=== PATIENT | female | born 1955 | race Caucasian/White ===

== ENCOUNTER 2021-07-23 08:55 | Outpatient (RCR) | payer MEDICARE, SELFPAY ==
[2021-07-23] MEDS: FAMOTIDINE 20 MG TABLET PO (15:47)
[2021-07-23] MEDS: ACETAMINOPHEN 325 MG TABLET 650 MG PO (15:47)
[2021-07-23] MEDS: diphenhydrAMINE HCl CAP 25 MG CAPSULE PO (15:47)
[2021-07-23 15:49] VITALS: BP 136/66; PULSE 77; RESP 20; TEMP 36.6; O2SAT 99
[2021-07-23 16:48] VITALS: BP 135/60
== END 2021-07-23 17:00 | disposition home or self-care (01) ==
LOC: AMCINF 08:55
PROVIDERS: Visit Provider Internal Medicine Hematology & Oncology
DX: U07.1 COVID-19 (principal)
CPT/HCPCS: A9270; M0243; Q0244

== ENCOUNTER 2022-07-24 10:30 | Emergency (ER) | payer MEDICARE, SELFPAY ==
--- NOTE | 2022-07-24 10:36 | ED.URI ---
HPI - URI/Sore Throat General Chief Complaint: Upper Respiratory Infection Stated Complaint: Chest Congestion Time Seen by Provider: 07/24/22 10:36 Source: patient and RN notes reviewed History of Present Illness HPI Narrative: patient is 66-year-old female who presents to the Urgent Care with complaints of chest congestion, cough and intermittent shortness of breath since yesterday. Patient does have a history of asthma and has not been using her albuterol inhaler. Patient states she has used Mucinex DM and taken Tylenol. Denies any fevers, nausea, vomiting. Denies of chest pain. No other acute complaints. No acute distress noted. Patient aware of the plan of care. Some parts of this dictation were generated by voice recognition software and may contain typographical and/or grammatical inaccuracies. Related Data Home Medications Medication Instructions Recorded Confirmed metoprolol tartrate 25 mg tablet 25 mg PO DAILY 07/23/21 07/24/22 multivitamin 1 tablet PO DAILY 07/23/21 07/24/22 albuterol sulfate 90 mcg/actuation 2 puff inhalation QID PRN 07/24/22 07/24/22 aerosol inhaler Shortness Of Breath aspirin 81 mg chewable tablet 81 mg PO DAILY 07/24/22 07/24/22 zolpidem 5 mg tablet 5 mg PO DAILY 07/24/22 07/24/22 Allergies Allergy/AdvReac Type Severity Reaction Status Date / Time No Known Allergies Allergy Verified 07/23/21 15:46 Review of Systems Review of Systems: CONSTITUTIONAL: Denies fever, chills, or sweats. EYES: Denies visual changes, redness, or discharge. ENT: Denies rhinorrhea, congestion, sore throat, or otalgia. CARDIOVASCULAR: Denies chest pain, palpitations, or edema. RESPIRATORY: Reports of chest congestion,cough with intermittent dyspnea GASTROINTESTINAL: Denies abdominal pain, nausea, vomiting, or diarrhea. GENITOURINARY: Denies dysuria or hematuria. SKIN: Denies rash or itching. MUSCULOSKELETAL: Denies back pain, joint pain, or myalgia. NEUROLOGIC: Denies headache, numbness, or weakness. All other systems reviewed are negative, except as documented in HPI. PMFSH Comments At the time of my signature, I reviewed and agree with the nursing past medical, surgical, social, and family history. There is no relevant family history pertinent to the patient complaint. Exam Narrative: GENERAL: This is a well-nourished, well-developed patient, in no apparent distress. HEAD: normocephalic, atraumatic. EYES: PERRL. Sclera clear/white. Vision is grossly intact. EARS: External ears normal, auditory canals clear and without drainage, TMs normal without perforation. Hearing grossly intact. NOSE: External nose normal with no obvious nasal discharge, nares without redness, no rhinorrhea. THROAT: Mucous membranes moist, posterior pharynx clear. moderate postnasal drainage NECK: Neck supple, non-tender without lymphadenopathy CARDIOVASCULAR: Regular rate and rhythm without murmurs, gallops, or rubs. RESPIRATORY: Clear to auscultation. Breath sounds equal bilaterally. No wheezes, rales, or rhonchi. no dyspnea noted SKIN: warm, intact with no suspicious lesions or rash, good texture and turgor. NEURO: awake, alert, and oriented to person, place and time. There were no obvious focal neurologic abnormalities. EXTREMITIES: No clubbing, cyanosis, or edema. Course Course Level of Care: Express Care Visit Vital Signs Vital signs: Vital Signs Temperature 98.4 F 07/24/22 10:41 Pulse Rate 89 07/24/22 10:41 Respiratory Rate 20 07/24/22 10:41 Blood Pressure 150/20 H 07/24/22 10:41 Pulse Oximetry 98 07/24/22 10:41 Temperature 98.4 F 07/24/22 10:41 Pulse Rate 89 07/24/22 10:41 Respiratory Rate 20 07/24/22 10:41 Blood Pressure 150/20 H 07/24/22 10:41 Pulse Oximetry 98 07/24/22 10:41 reviewed- Patient is informed that they may have pre-hypertension or hypertension based on a blood pressure reading in the department. I recommend the patient call the primary care provider list
[2022-07-24 10:38] VITALS: BP 150/70; PULSE 89; RESP 20; TEMP 36.9; O2SAT 98
== END 2022-07-24 10:58 | disposition home or self-care (01) ==
PROVIDERS: Emergency Provider Nurse Practitioner Family
DX: J06.9 Acute upper respiratory infection, unspecified (principal); J45.909 Unspecified asthma, uncomplicated; Z79.82 Long term (current) use of aspirin
CPT/HCPCS: 99213; G0463

== ENCOUNTER 2024-07-18 12:30 | Emergency (ER) | payer MEDICARE, OTHER, SELFPAY ==
[2024-07-18 12:42] VITALS: BP 126/49; PULSE 88; RESP 16; TEMP 37.4; O2SAT 96
--- NOTE | 2024-07-18 13:25 | ED.URI ---
HPI - URI/Sore Throat General Chief Complaint: Upper Respiratory Infection Stated Complaint: throat/drainage Time Seen by Provider: 07/18/24 13:17 Source: patient and RN notes reviewed Mode of arrival: ambulatory Limitations: no limitations History of Present Illness HPI Narrative: Patient presents today complaining a fever up to 100.5, postnasal drip, rhinorrhea, sore throat, weakness, headache, nausea, body aches and fatigue. Symptoms began 4 days ago. Denies shortness of breath or difficulty swallowing. Currently rates her pain 7/10 and has been taking Mucinex, Tessalon Perles, Motrin, and Tylenol without much relief. Related Data Home Medications ?Medication ?Instructions ?Recorded ?Confirmed ?Last Taken ?Type metoprolol tartrate 25 mg tablet 25 mg PO DAILY 07/23/21 07/24/22 Unknown History multivitamin 1 tablet PO DAILY 07/23/21 07/24/22 Unknown History albuterol sulfate 90 mcg/actuation 2 puff inhalation QID PRN 07/24/22 07/24/22 Unknown History aerosol inhaler Shortness Of Breath aspirin 81 mg chewable tablet 81 mg PO DAILY 07/24/22 07/24/22 Unknown History zolpidem 5 mg tablet 5 mg PO DAILY 07/24/22 07/24/22 Unknown History Allergies Allergy/AdvReac Type Severity Reaction Status Date / Time No Known Allergies Allergy Verified 07/18/24 13:19 Review of Systems Review of Systems: CONSTITUTIONAL: + fever, weakness, fatigue, body aches EYES: Denies visual changes, redness, or discharge. ENT: Denies congestion, or otalgia.+ sore throat, rhinorrhea, postnasal drip CARDIOVASCULAR: Denies chest pain, palpitations, or edema. RESPIRATORY: Denies cough or dyspnea. GASTROINTESTINAL: Denies abdominal pain, vomiting, or diarrhea.+ nausea GENITOURINARY: Denies dysuria or hematuria. SKIN: Denies rash, itching, or wounds. MUSCULOSKELETAL: Denies back pain, joint pain, or myalgia. NEUROLOGIC: Denies numbness, tingling, or weakness.+ headache PSYCH: Denies depression or anxiety. PMFSH Comments At time of signature, I have reviewed and agree with nursing past medical, surgical, social and family history unless otherwise noted. Please see nursing chart for further information. There is no relevant family history pertinent to the presenting complaint Exam Narrative: GENERAL: Mildly ill-appearing, well-nourished, and in no acute distress. HEAD: Normocephalic, atraumatic. EYES: EOMI. No redness or drainage. Conjunctivae normal. ENT: Mucous membranes pink and moist. Nares mildly congested. No rhinorrhea. TMs normal bilaterally. Throat normal. Uvula midline. NECK: Normal AROM. Supple. No lymphadenopathy. CHEST: No respiratory distress. Clear to auscultation. HEART: Regular rate and rhythm. No murmur appreciated. EXTREMITIES: Normal range of motion. No edema. SKIN: Warm, dry, no rash. Capillary refill normal. Normal skin turgor. NEURO: No focal deficits. Alert and oriented x3. Gait steady. PSYCH: Normal affect. No signs of depression or anxiety. Course Course Level of Care: Express Care Visit Vital Signs Vital signs: Vital Signs Temperature 99.4 F 07/18/24 12:42 Pulse Rate 88 07/18/24 12:42 Respiratory Rate 16 07/18/24 12:42 Blood Pressure 126/49 L 07/18/24 12:42 Pulse Oximetry 96 07/18/24 12:42 Oxygen Delivery Room Air 07/18/24 12:42 Temperature 99.4 F 07/18/24 12:42 Pulse Rate 88 07/18/24 12:42 Respiratory Rate 16 07/18/24 12:42 Blood Pressure 126/49 L 07/18/24 12:42 Pulse Oximetry 96 07/18/24 12:42 Oxygen Delivery Room Air 07/18/24 12:42 Reviewed MDM - URI/Sore Throat MDM Narrative Medical decision making narrative: COVID positive. Influenza and strep negative. Patient declines prescription for Paxlovid. Discussed duration of illness and voee-cqd-iygfnmo medication use. Anticipatory guidance given. ED precautions given. Differential Diagnosis Differential diagnosis: Likely upper respiratory infection, viral infection, bronchitis, influenza, pharyngitis and other (COVID-19, strep throat) Lab Data Attestation: I reviewed the patient's lab results. Labs: Lab Results 07/18/24 Range/Units 13:08 POC Influenza A Ag Negative (Negative) POC Influenza B Ag Negative (Negative) POC SARS CoV-2 Ag Positive (Negative) POC Grp A Strep Screen Negative (Negative) Critical Care Time Critical Care Time Critical Care Time: No Discharge Plan Discharge Clinical Impression: COVID-19 Patient Disposition: Home, Self-Care Condition: Stable Instructions: COVID-19 (Coronavirus Disease 2019) (ED) Additional Instructions: Your COVID-19 test is positive today. Your influenza and strep swabs are negative. Please continue kasa-uhu-ghybhuu medications at home for your symptoms. Rest and stay hydrated. Follow-up with your PCP next week if symptoms are not improving. Go to the ER immediately if you develop worsening symptoms such as shortness of breath, chest pain, or development of new fever greater than 100.3. Your blood pressure was elevated above 120/80 today at Urgent Care. This puts you above the threshold for follow up. Please schedule a followup visit with your personal physician as soon as possible, for further evaluation and treatment. Even blood pressure exceeding 120/80 may indicate pre-hypertension. Patient Language: Vietnamese Prescriptions: No Action zolpidem 5 mg tablet 5 mg PO DAILY aspirin [Baby Aspirin] 81 mg Tablet,Chewable 81 mg PO DAILY albuterol sulfate 90 mcg/actuation Hfa Aerosol Inhaler 2 puff INHALATION QID PRN (Reason: Shortness Of Breath) benzonatate 100 mg capsule 100 mg PO TID PRN (Reason: cough) Qty: 20 0RF prednisone 20 mg tablet 20 mg PO DAILY Qty: 5 0RF multivitamin Tablet 1 tablet PO DAILY metoprolol tartrate 25 mg Tablet 25 mg PO DAILY Follow-up/Referrals: PHYSICIAN NOT ON STAFF,NONSTAFF [Primary Care Provider] - Time of Disposition: 13:42
[2024-07-18 13:48] LABS: EDCOVIDSCREEN Positive (Negative); EDINFLUASCREEN Negative (Negative); EDINFLUBSCREEN Negative (Negative); EDSTREPNEGPOS1 Negative (Negative)
== END 2024-07-18 13:50 | disposition home or self-care (01) ==
PROVIDERS: Emergency Provider Nurse Practitioner
DX: U07.1 COVID-19 (principal)
CPT/HCPCS: 87081; 87426; 87804; 87880; 99213; G0463

== ENCOUNTER 2025-05-11 09:21 | Outpatient (CLI) | payer MEDICARE, SELFPAY ==
--- OUTSIDE RECORDS SUMMARY | 2025-05-11 10:19 | XMS_ITS | Clinical Summary ---
Author Organization [facility] [address] [place] [address] [place] [id number] Care Team Providers Care Director Security Risk Management Name Role Phone Leo Talbot MD Primary Care Provider [phone] Allergies Active Allergy Reactions Criticality Noted Date Comments Oxycodone Shortness of breath High 06/16/2019 Medications metoprolol XL (TOPROL-XL) 25 mg 24 hr tablet take 1 tablet by oral route every day 0 0 04/02/20 16 Active calcium carbonate-vitamin D3 (CALCIUM+D) 1,250mg (500mg elemental) - 200 units per tablet 0 0 04/02/20 16 Active Additional Information Patient not taking.Reported on 09/16/2024 acetaminophen (TYLENOL) 325 mg tablet take 1 tablet by oral route every 4 hours as needed 0 0 04/02/20 16 Active latanoprost (XALATAN) 0.005 % ophthalmic solution 12/27/19 17 Active metoprolol XL (TOPROL-XL) 25 mg 24 hr tablet Take 0.5 tablets (12.5 mg total) by mouth Active multivitamin with minerals tablet Take by mouth. Active aspirin 81 mg tablet Take 1 tablet (81 mg total) by mouth Active amLODIPine (NORVASC) 2.5 mg tablet 05/26/20 18 Active latanoprost (XALATAN) 0.005 % ophthalmic solution Administer 1 drop into affected eye(s) nightly Active rosuvastatin (CRESTOR) 5 mg tablet Take 1 tablet (5 mg total) by mouth nightly at bedtime 05/17/20 23 Active diazePAM (VALIUM) 5 mg tablet TAKE 1 TABLET BY MOUTH NEEDED FOR ANXIETY. TAKE 30 MINUTES PRIOR TO MRI APPOINTMENT 05/18/20 23 Active zolpidem (AMBIEN) 5 mg tabletIndications: Sleep-Onset Insomnia Take 1 tablet (5 mg total) by mouth nightly as needed for sleep Active albuterol HFA (PROVENTIL HFA,VENTOLIN HFA,PROAIR HFA) 90 mcg/actuation inhaler Inhale 2 puffs every 6 (six) hours as needed for wheezing Active celecoxib (CeleBREX) 200 mg capsuleIndications :Left knee pain, unspecified chronicity,Primary localized osteoarthritis of knees, bilateral Take 1 capsule (200 mg total) by mouth daily for 21 days 21 capsule 09/05/19 25 Active Active Problems Problem Noted Date Diagnosed Date Asthma 06/16/2019 Closed fracture of distal en d of right fibula with routine healing 02/19/2017 Contusion of right knee 02/19/2017 Fracture follow-up 01/22/2017 Closed fracture of right distal fibula 7 Palpitations 04/27/2013 Ventricular premature beats 04/27/2013 Syncope 02/11/2012 Resolved Problems Problem Noted Date Diagnosed Date Resolved Date Paroxysmal supraventricular tachycardia 04/27/2013 06/25/2018 Immunizations Immunization Administration Dates Next Due Influenza, Trivalent, High D ose, Split, Preservative Free, Intramuscular 07/04/2019 Medical History Medical History Date Comments Asthma Asthma; Comments : [facility] 04/02/2016 - Hx Other Medical Abnormal Heartb eat; Comments: [facility] 04/02/2016 - Family History Medical History Relation Name Comments Heart disease Mother Relation Name Status Comments Mother Social History Tobacco Use Types Packs/Day Years Used Date Smoking Tobacco: Never Smokeless Tobacco: Never Tobacco Cessation:Counseling Given: Not Answered Alcohol Use Standard Drinks/Week Comments Defer 0 (1 standard drink = 0.6 oz pur e alcohol) AUDIT-C Answer Date Recorded Q1: How often do you have a drink containing alcohol? Never 09/05/2024 Q2: How many drinks containi ng alcohol do you have on a typical day when you are drinking? Patient does not drink Q3: How often do you have si x or more drinks on one occasion? Never 09/05/2024 Comments Unknown Sex and Gender Information Value Date Recorded Sex Assigned at Not on file Legal Sex Female 4:15 AM HOSE SEAMER Gender Identity Not on file Sexual Orientation Not on file Obstetrics History Last Filed Vital Signs Vital Sign Reading Time Taken Comments Blood Pressure 146/75 09/16/2024 10:32 AM HOSE SEAMER Pulse 72 09/16/2024 10:32 AM HOSE SEAMER Temperature 36.6 C (97.8 F) 06/12/2023 12:48 PM HOSE SEAMER Respiratory Rate 16 09/05/2024 11:29 AM HOSE SEAMER Oxygen Saturation 96% 06/12/2023 12:48 PM HOSE SEAMER Inhaled Oxygen Concentration - - Weight 63 kg (139 lb) 09/16/2024 10:32 AM HOSE SEAMER Height 157.5 cm (5' 2) 09/16/2024 10:32 AM HOSE SEAMER Body Mass Index 25.42 09/16/2024 10:32 AM HOSE SEAMER Plan of Treatment Health Maintenance Due Date Last Done Comments Colon Cancer Screening-Colonoscopy 1955 Depression Screening 1955 Fall Risk Assessment 1955 Hepatitis C Screening 1955 Osteoporosis Screening-Bone Density Scan 1955 Hepatitis B Screening 10/28/1971 Well Visit 65+ 2018 Covid-19 Vaccine (2024-2 6 season) 2025 04/26/2021, 10/20/2020, 09/23/2020 Influenza Vaccine (#1) 2025 , 03/19/2020, 07/04/2019, Additional history exists Breast Cancer Screening-Mammogram 05/09/2025 05/09/2024, 05/09/2024, 03/06/2023, Additional history exists DTaP/Tdap/Td Vaccine (2 - Td or Tdap) 11/06/2025 11/07/2015 Zoster Vaccine Completed 05/10/2018, 02/25/2018 Pneumococcal vaccine 65+ Completed 020, 12/17/2018, 02/25/2018 Insurance MEDICARE [facility] CHOICE PLUS [employer] MEDICARE SUPPLEMENT MEDICARE [facility] MEDICARE SUPPLEMENT Care Teams Director Security Risk Management Relationship Specialty Start Date End Date Leo Talbot MD [address] [place] [address] [place] [address] PCP - General Internal Medicine 06/25/18
--- OUTSIDE RECORDS SUMMARY | 2025-05-11 10:19 | XMS_ITS | Encounter Summary ---
Author Organization [facility] Address [address] [place] [address] Phone Care Team Providers Care Soft Sugar Cutter Name Role Phone Leo Talbot MD Primary Care Provider [phone] Reason for Referral * Radiology Services (Routine) - Closed Specialty Diagnoses / Procedures Referred By Contac t Referred To Contact Radiology Diagnoses Encounter for screening mammogram for breast cancer Procedures ERIN SCREENING BILATERAL DIGITAL W CAD W Leo Duckworth MD [address] [place] [address] [place] [address] Phone: tel: fax: Referral ID Status Reason Start Date Expiration Date Visits Re quested Visits Authorized [id number] Closed 02/08/2024 1 1 Encounter Details Date Type Department Care Team (Latest Contact Info) Description 02/08/2024 Transcribe Orders [facility] Central Scheduling [address] [place] [address] Leo Talbot MD [address] [place] [address] [place] [id number] Encounter for screening mammogram for breast cancer (Primary Dx) Social History Tobacco Use Types Packs/Day Years Used Date Smoking Tobacco: Never Alcohol Use Standard Drinks/Week Comments No 0 (1 standard drink = 0.6 oz pur e alcohol) Comments No Sex and Gender Information Value Date Recorded Sex Assigned at Not on file Legal Sex Female 12:43 AM CDT Gender Identity Not on file Sexual Orientation Not on file documented as of this encounter Plan of Treatment Not on file documented as of this encounter Results * ERIN SCREENING BILATERAL DIGITAL W CAD W RENETTA (05/09/2024 12:39 PM CDT) Anatomical Region Laterality Modality breast Bilateral Mammography 05/09/2024 12:0 9 PM CDT Narrative 05/10/2024 12:23 PM CDT - ERIN SCREENING BILATERAL DIGITAL W CAD W RENETTA BILATERAL DIGITAL SCREENING MAMMOGRAM 3D/2D WITH CAD WITH MEDIOLATERAL OBLIQUE CRANIOCAUDAL: 05/09/2024 The study was acquired using digital technology and interpreted from soft copy. Current study was also evaluated with [employer] version 7.2. 2D digital mammographic views, as well as 3D digital tomosynthesis were performed in the CC and MLO projections. CLINICAL: Routine screening. Patient has no complaints. Due to patient habitus/limited inframmary fold, additional images were taken in an effort to obtain adequate breast tissue. No personal history of cancer. Maternal cousin had breast cancer. COMPARISONS: Comparison is made to exams dated: 03/06/2023, 02/05/2022, and 01/18/2021 [facility]. BREAST TISSUE:The breasts are heterogeneously dense, which may obscure small masses. FINDINGS: No significant masses, calcifications, or other findings are seen in either breast. There has been no significant interval change. IMPRESSION: NEGATIVE There is no mammographic evidence of malignancy. A 1 year screening mammogram is recommended. A letter will be sent to the patient with these results. The patient will be entered into a reminder system with a target due date of 1 year for her next screening exam. Electronically signed by: Silverio chris/dedrick:05/09/2024 19:43:39 Information Technology Coordinator(s): RT Rosalind(R)(M), [facility] letter sent: Normal Exam Reading location: [facility] Mammogram BI-RADS: Category 1: Negative Procedure Note Silverio Rose MD - 05/10/2024 - ERIN SCREENING BILATERAL DIGITAL W CAD W RENETTA BILATERAL DIGITAL SCREENING MAMMOGRAM 3D/2D WITH CAD WITH MEDIOLATERAL OBLIQUE CRANIOCAUDAL: 05/09/2024 The study was acquired using digital technology and interpreted from soft copy. Current study was also evaluated with IC[employer] version 7.2. 2D digital mammographic views, as well as 3D digital tomosynthesis were performed in the CC and MLO projections. CLINICAL: Routine screening. Patient has no complaints. Due to patient habitus/limited inframmary fold, additional images were taken in an effort to obtain adequate breast tissue. No personal history of cancer. Maternal cousin had breast cancer. COMPARISONS: Comparison is made to exams dated: 03/06/2023, 02/05/2022, and 01/18/2021 [facility]. BREAST TISSUE:The breasts are heterogeneously dense, which may obscure small masses. FINDINGS: No significant masses, calcifications, or other findings are seen in either breast. There has been no significant interval change. IMPRESSION: NEGATIVE There is no mammographic evidence of malignancy. A 1 year screening mammogram is recommended. A letter will be sent to the patient with these results. The patient will be entered into a reminder system with a target due date of 1 year for her next screening exam. Electronically signed by: Silverio chris/dedrick:05/09/2024 19:43:39 Information Technology Coordinator(s): RT Rosalind(R)(M), [facility] letter sent: Normal Exam Reading location: [facility] Mammogram BI-RADS: Category 1: Negative us Leo Talbot MD IMG MAMMO ORDERABLES Final Re sult documented in this encounter Visit Diagnoses Diagnosis Encounter for screening mammogram for breast cancer- Primary Encounter for screening mammogram for breast cancer documented in this encounter Care Teams Soft Sugar Cutter Relationship Specialty Start Date End Date Leo Talbot MD [address] [place] [address] [place] [id number] PCP - General Internal Medicine 11/01/18 documented as of this encounter
--- OUTSIDE RECORDS SUMMARY | 2025-05-11 10:19 | XMS_ITS | Encounter Summary ---
Author Organization [facility] Address [address] [place] [address] Care Team Providers Care Forming Tube Selector Name Role Phone Unavailable Primary Care Provider Unavailabl e Encounter Details Date Type Department Care Team (Late st Contact Info) Description 12/19/2021 Lab Requisition [facility] D[facility] Lab [address] [place] [id number] Jovany Wilson MD [address] [place] [address] Social History Tobacco Use Types Packs/Day Years Used Date Smoking Tobacco: Never Assessed Comments Unknown Sex and Gender Information Value Date Recorded Sex Assigned at Not on file Legal Sex Female 12:22 PM CDT Gender Identity Not on file Sexual Orientation Not on file documented as of this encounter Plan of Treatment Not on file documented as of this encounter Procedures Procedure Name Priority Date/Time Associated Diagnosis Comments DERMATOPATHOLOGY Routine 12/18/2021 12:0 0 AM CDT documented in this encounter Results * DERMATOPATHOLOGY (12/18/2021 12:00 AM CDT) Case Report Dermatopathology Report Case: [id number] Authorizing Provider: Jovany Wilson MD Collected: 12/18/2021 12:00 AM Ordering Location: [facility] Lab Received: 12/19/2021 01:08 PM Pathologist: Luis Parnell MD Specimen: Skin, left side neck 5:31 PM CDT DERMATOPATHOLOGY LABORATORY Final Diagnosis Specimen A. SKIN, left side neck: PIGMENTED SEBORRHEIC KERATOSIS (L82.1) 5:31 PM CDT DERMATOPATHOLOGY LABORATORY at 1731 CDT Clinical History R/O dys nevus. 2 5:31 PM CDT DERMATOPATHOLOGY LABORATORY Gross Description Specimen A: Received is one formalin filled container labeled with the patients name and designated left side neck. The specimen consists of a shave removal measuring [id number]. Jar 0. 2 5:31 PM CDT DERMATOPATHOLOGY LABORATORY Microscopic Description Specimen A. SKIN, left side neck: Sections show an acanthotic lesion composed of relatively uniform keratinocytes. There is hyperkeratosis and pseudo horn cysts. Pigment is present in the keratinocytes composing this tumor. 2 5:31 PM CDT DERMATOPATHOLOGY LABORATORY Disclaimer An external and internal positive and negative controls are appropriate for the histochemical, immunohistochemical and immunofluorescence stain(s) in this case (if any), except where stated explicitly. The performance characteristics of the stain(s) cited in this report were developed and its performance characteristic determined by the Dermatopathology Laboratory at [facility], directed by Dr. Amanda Parnell. These tests need not be, and therefore are not, approved by the [place] Food and Drug Administration. The tests are used for clinical purposes. Billing Codes Specimen Charges Stain Charges 18980 1 2 5:31 PM CDT DERMATOPATHOLOGY LABORATORY Embedded Images 2 5:31 PM CDT DERMATOPATHOLOGY LABORATORY Pathology/Cytolog y TISSUE SPECIMEN FROM SKIN / Unknown 12/18/2021 12/19/2021 1:08 PM CDT Jovany Wilson MD LAB - PATHOLOGY/CYTOLOGY ORD ERABLES Final Result DERMATOPATHOLOGY LABORATORY [facility] - Department of Dermatology [address] [place] [address], [place] [phone] documented in this encounter Visit Diagnoses Not on filedocumented in this encounter
--- OUTSIDE RECORDS SUMMARY | 2025-05-11 10:19 | XMS_ITS | Clinical Summary ---
Author Organization [facility] Address [address] [place] [address] Phone Care Team Providers Care Professor Of Apologetics Name Role Phone Leo Talbot MD Primary Care Provider [phone] Allergies No known active allergies Medications metoprolol Succinate (TOPROL-XL) 25 MG TABLET SR 24 HR Take 12.5 mg by mouth daily. Active latanoprost (XALATAN) 0.005 % SolutionIndicat ions:EACH EYE Place 1 Drop in affected eye(s) nightly. Indications: EACH EYE Active Aspirin 81 MG Tablet Take 81 mg by mouth daily. Active Loratadine 10 MG Capsule Take 10 mg by mouth daily as needed. Active Multiple Vitamins-Minera ls (MULTIVITAMIN PO) Take 1 Tab by mouth daily. Active oxyCODONE-aceta minophen (PERCOCET) 5-325 MG Tablet Take 1-2 Tabs by mouth every 4 hours as needed for Pain. 30 Tab 0 01/02/2017 Active Active Problems No known active problems Encounters Date Type Department Care Team Description 04/17/2025 Transcribe Orders [facility] Central Scheduling [address] [place] [address] Leo Talbot MD Dense breast tissue on mammogram, unspecified type (Primary Dx) 04/14/2025 Transcribe Orders [address] [place], [place] [id number] Leo Talbot MD Visit for screening mammogram (Primary Dx) from Last 3 Months Immunizations Immunization Administration Dates Next Due TDAP Vaccine 11/07/2015 Family History Medical History Relation Name Comments Breast Cancer Other mat. cousin Relation Name Status Comments Other mat. cousin Social History Tobacco Use Types Packs/Day Years Used Date Smoking Tobacco: Never Alcohol Use Standard Drinks/Week Comments No 0 (1 standard drink = 0.6 oz pur e alcohol) Comments No Sex and Gender Information Value Date Recorded Sex Assigned at Not on file Legal Sex Female 12:43 AM CDT Gender Identity Not on file Sexual Orientation Not on file Last Filed Vital Signs Vital Sign Reading Time Taken Comments Blood Pressure 161/61 01/02/2017 1:29 PM CDT Pulse 94 01/02/2017 1:29 PM CDT Temperature 36.8 C (98.2 F) 01/02/2017 1:29 PM CDT Respiratory Rate 18 01/02/2017 1:29 PM CDT Oxygen Saturation 98% 01/02/2017 1:29 PM CDT Inhaled Oxygen Concentration - - Weight 59 kg (130 lb) 01/02/2017 1:29 PM CDT Height 157.5 cm (5' 2) 01/02/2017 1:29 PM CDT Body Mass Index 23.78 01/02/2017 1:29 PM CDT Plan of Treatment Health Maintenance Due Date Last Done Comments DEXA Bone Density 1955 Hepatitis C Virus (HCV) Screening 1955 Cologuard 1998 Colonoscopy 1998 Colorectal Cancer Screening 1998 Immunochemical Fecal Occult Blood 1998 Pneumococcal Immunization (50+ years) (2 of 2 - PCV) 03/19/2021 03/19/2020, 02/25/2018 Influenza Immunization (#1) 03/27/202503/28, 05/01/2023, 04/19/2022, Additional history exists SARS-COV-2 Immunization (2023- season) 2025 04/21/2024, 06/03/2023, 06/22/2022, Additional history exists Mammogram 05/09/2025 05/09/2024, 02/24, 02/05/2022, Additional history exists Zoster Immunization Completed 05/10/2018, 8 Pneumococcal Immunization Combined Discontinued 03/19/2020, 02/25/2018 Respiratory Syncytial Virus (RSV) Immunization (Adult) Completed 06/03/2023 DTaP/Tdap/Td Immunization Discontinued 04/21/2024, Hepatitis B Immunization Aged Out No longer eligible based on patient's age to complete this topic Human Papillomavirus (HPV) Immunization Aged Out No longer eligible based on patient's age to complete this topic Meningococcal Immunization (ACWY) Aged Out No longer eligible based on patient's age to complete this topic Rotavirus Immunization Aged Out No lo nger eligible based on patient's age to complete this topic Procedures Procedure Name Priority Date/Time Associated Diagnosis Comments ERIN SCREENING BILATERAL DIGITAL W CAD W RENETTA Routine 05/09/2024 12:39 PM CDT Encounter for screening mammogram for breast cancer from Last 3 Months or Most Recently Relevant to Health Maintenance Results * ERIN SCREENING BILATERAL DIGITAL W [...] to exams dated: 03/06/2023, 02/05/2022, and 01/18/2021 [facility]. BREAST TISSUE:The breasts are heterogeneously dense, which [...] next screening exam. Electronically signed by: Silverio chris/penrad:05/09/2024 19:43:39 Education And Outreach Coordinator(s): RT Rosalind(R)(M), [facility] letter sent: Normal Exam Reading location: [place] [...] to exams dated: 03/06/2023, 02/05/2022, and 01/18/2021 [facility]. BREAST TISSUE:The breasts are heterogeneously dense, which [...] next screening exam. Electronically signed by: Silverio chris/penjoyce:05/09/2024 19:43:39 Education And Outreach Coordinator(s): RT Rosalind(R)(M), [facility] letter sent: Normal Exam Reading location: [place] Mammogram BI-RADS: Category 1: Negative Leo Talbot MD IMG MAMMO ORDERABLES Final Re sult from Last 3 Months or Most Recently Relevant to Health Maintenance Insurance MEDICARE [facility] Care Teams Professor Of Apologetics Relationship Specialty Start Date End Date Leo Talbot MD [address] [place] [address] [place] [address] PCP - General Internal Medicine 11/01/18
--- OUTSIDE RECORDS SUMMARY | 2025-05-11 10:19 | XMS_ITS | Clinical Summary ---
Author Organization [facility] Address [address] [place] [address] Care Team Providers Care Tangled Yarn Worker Name Role Phone Unavailable Primary Care Provider Unavailabl e Source Comments [facility],non-owned Affiliates and Associated Physician Practices is amultiple site organization consisting of ambulatory clinics and hospital sitesin [place], [place], [place] and [place]. This disclosure is being madepursuant to the Care Everywhere program and may not contain all information available regarding this patient. Last updated 18.[facility] [employer] Social History Tobacco Use Types Packs/Day Years Used Date Smoking Tobacco: Never Assessed Comments Unknown Sex and Gender Information Value Date Recorded Sex Assigned at Not on file Legal Sex Female 12:22 PM CDT Gender Identity Not on file Sexual Orientation Not on file Plan of Treatment Health Maintenance Due Date Last Done Comments BONE DENSITY TESTING 1955 COLOGUARD (AGES 45-75) - COL ON CA SCREENING 1953 COLON MONITORING 1953 COLONOSCOPY - COLON CA SCREENING 1953 CT COLONOGRAPHY - COLON CA SCREENING 1953 Colorectal Cancer Screening 1953 FIT - COLON CA SCREENING 1953 FLEX SIG - COLON CA SCREENING 1953 LIPID TESTING 1953 MAMMOGRAM 1953 HEPATITIS C SCREENING 10/23/1971 DTAP/TDAP/TD VACCINES (1 - Tdap) 1972 PNEUMOCOCCAL VACCINE 50+ (1 of 1 - PCV) 10/28/2003 ZOSTER VACCINE (1 of 2) 10/28/2003 DEPRESSION SCREENING 07/27/2024 COVID-19 VACCINE ( - 2023-2 5 season) 2025 INFLUENZA VACCINE (#1) 2025 Respiratory Syncytial Virus (RSV) Vaccine Pt: or over 60 yrs (1 - 1-dose 75+ series) 2028 HEPATITIS B VACCINE Aged Out No longe r eligible based on patient's age to complete this topic HIB VACCINE Aged Out No longer eligi ble based on patient's age to complete this topic HPV VACCINE Aged Out No longer eligi ble based on patient's age to complete this topic MENINGOCOCCAL (Group B) VACC INE SHARED DECISION-MAKING Aged Out No longer eligibl e based on patient's age to complete this topic MENINGOCOCCAL GROUPS A/C/Y/W VACCINE Aged Out No longer eligible b ased on patient's age to complete this topic Insurance MEDICARE AET
== END 2025-05-11 09:22 | disposition home or self-care (01) ==
LOC: CHSIMG 09:25
DX: R92.30 Dense breasts, unspecified (principal)
CPT/HCPCS: 99199

== ENCOUNTER 2025-06-01 08:57 | Outpatient (CLI) | payer MEDICARE, SELFPAY ==
--- NOTE | ~2025-06-01 | MM_ITS ---
EXAMINATION: MM diagnostic ely BI w anahi HISTORY: Dense breast tissue. No breast related symptoms at this time. TECHNIQUE: Craniocaudal and mediolateral oblique 3-D tomosynthesis images were obtained and synthetic 2-D images were generated. CAD analysis was submitted and interpreted. COMPARISON: None provided BREAST PARENCHYMAL COMPOSITION: The breasts are heterogeneously dense, which may obscure small masses. FINDINGS: There is no evidence of suspicious mass, calcification, or architectural distortion to suggest malignancy in either breast. An asymmetry seen in the inferior at posterior depth in the right breast effaces on spot compression views compatible with superimposition of fibroglandular tissue. IMPRESSION: 1. No mammographic evidence of malignancy. 2. Recommend routine screening mammography in one year. BI-RADS Category 1: Negative Reviewed, dictated and finalized at location B. OTIST OR PROSTHETIST
--- OUTSIDE RECORDS SUMMARY | 2025-06-01 17:49 | XMS_ITS | Clinical Summary ---
Author Organization [facility] [address] [place] [address] [place] [address] Care Team Providers Care Oil Program Compliance Specialist Name Role Phone Leo Talbot MD Primary Care Provider [phone] Allergies Active Allergy Reactions Criticality Noted Date [...] History Date Comments Asthma Asthma; Comments : [facility] 04/02/2016 - Hx Other Medical Abnormal Heartb eat; Comments: [facility] 04/02/2016 - Family History Medical History Relation [...] on file Legal Sex Female 4:15 AM LATHE OPERATOR CONTACT LENS Gender Identity Not on file Sexual Orientation Not on file Last Filed Vital Signs Vital Sign Reading Time Taken Comments Blood Pressure 146/75 09/16/2024 10:32 AM LATHE OPERATOR CONTACT LENS Pulse 72 09/16/2024 10:32 AM LATHE OPERATOR CONTACT LENS Temperature 36.6 C (97.8 F) 06/12/2023 12:48 PM LATHE OPERATOR CONTACT LENS Respiratory Rate 16 09/05/2024 11:29 AM LATHE OPERATOR CONTACT LENS Oxygen Saturation 96% 06/12/2023 12:48 PM LATHE OPERATOR CONTACT LENS Inhaled Oxygen Concentration - - Weight 63 kg (139 lb) 09/16/2024 10:32 AM LATHE OPERATOR CONTACT LENS Height 157.5 cm (5' 2) 09/16/2024 10:32 AM LATHE OPERATOR CONTACT LENS Body Mass Index 25.42 09/16/2024 10:32 AM LATHE OPERATOR CONTACT LENS Plan of Treatment Health Maintenance Due Date [...] 65+ Completed 020, 12/17/2018, 02/25/2018 Insurance MEDICARE [facility] MEDICARE SUPPLEMENT MEDICARE [facility] MEDICARE SUPPLEMENT Care Teams Oil Program Compliance Specialist Relationship Specialty Start Date End Date Leo Talbot MD [address] [place] [address] DR [place] [address] [place] [id number] PCP - General Internal Medicine 06/25/18
--- OUTSIDE RECORDS SUMMARY | 2025-06-01 17:49 | XMS_ITS | Encounter Summary ---
Author Organization [facility] Address [address] [place] [address] Care Team Providers Care Etl Consultant Name Role Phone Unavailable Primary Care Provider Unavailabl e Encounter Details Date Type Department Care Team (Late st Contact Info) Description 12/19/2021 Lab Requisition [facility] DermPath Lab [address] [place] [id number] Jovany Wilson MD [address] [place] [address] Social History Tobacco Use Types [...] AM CDT) Case Report Dermatopathology Report Case: [id number] Authorizing Provider: Jovany Wilson MD Collected: 12/18/2021 12:00 AM Ordering Location: [facility] DermPath Lab Received: 12/19/2021 01:08 PM Pathologist: [...] specimen consists of a shave removal measuring [id number]. Jar 0. 2 5:31 PM CDT DERMATOPATHOLOGY [...] characteristic determined by the Dermatopathology Laboratory at [facility], directed by Dr. Amanda Parnell. These tests need not be, and therefore are not, approved by the [place] Food and Drug Administration. The tests are used for clinical purposes. Billing Codes Specimen Charges Stain Charges 23371 1 2 5:31 PM CDT DERMATOPATHOLOGY LABORATORY Embedded Images 2 5:31 PM CDT DERMATOPATHOLOGY LABORATORY Pathology/Cytolog y TISSUE SPECIMEN FROM SKIN / Unknown 12/18/2021 12/19/2021 1:08 PM CDT Jovany Wilson MD LAB - PATHOLOGY/CYTOLOGY ORD ERABLES Final Result DERMATOPATHOLOGY LABORATORY [facility] - Department of Dermatology [address] [place] [address], [facility] [phone] documented in this encounter Visit Diagnoses Not on filedocumented in this encounter
--- OUTSIDE RECORDS SUMMARY | 2025-06-01 17:49 | XMS_ITS | Clinical Summary ---
Author Organization [facility] Address [address] [place] [address] Phone Care Team Providers Care Deployment Engineer Name Role Phone Leo Talbot MD Primary Care Provider [phone] Allergies No known active allergies Medications metoprolol [...] Department Care Team Description 04/17/2025 Transcribe Orders [facility] Central Scheduling [address] [place] [address] Leo Talbot MD Dense breast tissue on mammogram, unspecified type (Primary Dx) 04/14/2025 Transcribe Orders [address] [place] [address] Leo Talbot MD Visit for screening mammogram [...] 05/01/2023, 04/19/2022, Additional history exists SARS-COV-2 Immunization (2024- season) 2025 04/21/2024, 06/03/2023, 06/22/2022, Additional history [...] exams dated: 03/06/2023, 02/05/2022, and 01/18/2021 [facility]. BREAST TISSUE:The breasts are heterogeneously dense, which [...] exam. Electronically signed by: Silverio chris/penrad:05/09/2024 19:43:39 Director Of Web Marketing(s): RT Rosalind(R)(M), [facility] letter sent: Normal Exam Reading location: [place] [...] to exams dated: 03/06/2023, 02/05/2022, and 01/18/2021 [facility]. BREAST TISSUE:The breasts are heterogeneously dense, which [...] exam. Electronically signed by: Silverio chris/penjoyce:05/09/2024 19:43:39 Director Of Web Marketing(s): RT Rosalind(R)(M), [facility] letter sent: Normal Exam Reading location: [place] Mammogram BI-RADS: Category 1: Negative Leo Talbot MD IMG MAMMO ORDERABLES Final Re sult from Last 3 Months or Most Recently Relevant to Health Maintenance Insurance MEDICARE [facility] Care Teams Deployment Engineer Relationship Specialty Start Date End Date Leo Talbot MD [address] [place] [address] [place] [address] PCP - General Internal Medicine 11/01/18
--- OUTSIDE RECORDS SUMMARY | 2025-06-01 17:49 | XMS_ITS | Clinical Summary ---
Author Organization [facility] Address [address] [place] [address] Care Team Providers Care Cemetery Counselor Name Role Phone Unavailable Primary Care Provider Unavailabl e Source Comments [facility],non-owned Affiliates and Associated Physician Practices is amultiple site organization consisting of ambulatory clinics and hospital sitesin [place], [place], [place] and [place]. This disclosure is being madepursuant to the Care Everywhere program and may not contain all information available regarding this patient. Last updated 18.[facility] [employer] Social History Tobacco Use Types Packs/Day Years [...]
--- OUTSIDE RECORDS SUMMARY | 2025-06-01 17:49 | XMS_ITS | Encounter Summary ---
Author Organization [facility] Address [address] [place] [address] Phone Care Team Providers Care Information Systems Coordinator Name Role Phone Leo Talbot MD Primary Care Provider Reason for Referral * Radiology Services (Routine) - Closed Specialty Diagnoses / Procedures Referred By Contac t Referred To Contact Radiology Diagnoses Encounter for screening mammogram for breast cancer Procedures ERIN SCREENING BILATERAL DIGITAL W CAD W RENETTA Leo Talbot MD [address] [place] [address] [place] [address] Phone: tel: fax: Referral ID Status Reason Start Date Expiration Date Visits Re quested Visits Authorized [id number] Closed 02/08/2024 1 1 Encounter Details Date Type Department Care Team (Latest Contact Info) Description 02/08/2024 Transcribe Orders [facility] Central Scheduling [address] [place] [address] Leo Talbot MD [address] [place] [address] [place] [address] Encounter for screening mammogram [...] copy. Current study was also evaluated with QuadWrangleD version 7.2. 2D digital mammographic views, as [...] to exams dated: 03/06/2023, 02/05/2022, and 01/18/2021 [facility]. BREAST TISSUE:The breasts are heterogeneously dense, which [...] exam. Electronically signed by: Silverio chris/dedrick:05/09/2024 19:43:39 Applications Trainer(s): RT Rosalind(R)(M), [facility] letter sent: Normal Exam Reading location: [place] Mammogram BI-RADS: Category 1: Negative Procedure Note Silverio Rose MD - 10/15/2024 - ERIN SCREENING BILATERAL DIGITAL W CAD [...] to exams dated: 03/06/2023, 02/05/2022, and 01/18/2021 [facility]. BREAST TISSUE:The breasts are heterogeneously dense, which [...] exam. Electronically signed by: Silverio chris/dedrick:05/09/2024 19:43:39 Applications Trainer(s): RT Rosalind(R)(M), [facility] letter sent: Normal Exam Reading location: [place] Mammogram BI-RADS: Category 1: Negative us Leo Talbot MD IMG MAMMO ORDERABLES Final Re sult documented in this encounter Visit Diagnoses Diagnosis Encounter for screening mammogram for breast cancer- Primary Encounter for screening mammogram for breast cancer documented in this encounter Care Teams Information Systems Coordinator Relationship Specialty Start Date End Date Leo Talbot MD [address] [place] [address] [place] [address] PCP - General Internal Medicine 11/01/18 documented as of this encounter
== END 2025-06-01 08:58 | disposition home or self-care (01) ==
LOC: CHSIMG 09:03
DX: R92.30 Dense breasts, unspecified (principal); Z12.39 Encounter for other screening for malignant neoplasm of breast
CPT/HCPCS: 77062; 77066; G0279